=== PATIENT | male | born 1995 | race Caucasian/White ===

== ENCOUNTER 2017-10-15 21:06 | Emergency (ER) | payer BC, SELFPAY ==
[2017-10-15 21:07] VITALS: BP 109/57; PULSE 86; RESP 16; TEMP 36; O2SAT 97; BMI 24.4
[2017-10-15 22:11] VITALS: BP 107/59; PULSE 82; RESP 16; O2SAT 97
[2017-10-15] MEDS: Diphth,Pertuss(Acell),Tet Vac 0.5 ML Vial IM (22:25)
[2017-10-15 22:26] VITALS: BP 103/50; BP 104/41; BP 106/56; PULSE 66; PULSE 73; PULSE 74
[2017-10-15 23:50] LABS: Absolute Lymphocyte Count 1.28 X10^3/ul (0.83-4.51); Basophil# 0.02 X10^3/uL; Basophil% 0.2 % (0-1); Eosinophil# 0.15 X10^3/uL; Eosinophils% 1.9 % (0-5); Hematocrit 40.5 % (40-54); Hemoglobin 14.3 g/dl (13.0-16.5); Lymphocyte # 1.28 X10^3/ul (4.0); Lymphocyte % 15.9 % (19-41); Mean Corp Hgb Conc 35.3 g/gl (32-36); Mean Corpuscular Hgb 31.4 pg (27.0-32.0); Mean Platelet Vol. 10.1 fl (6.2-12.0); Monocyte# 0.59 X10^3/uL; Monocyte% 7.3 % (0-10); Neutrophil # 5.99 X10^3/uL (2.7-7.7); Neutrophil % 74.6 % (47-70); Platelet Count 192 K/mm3 (150-450); RBC Distribution Width CV 12.1 % (11.6-14.6); RBC Distribution Width SD 39.2 fl (35.1-43.9); Red Blood Count 4.55 M/mm3 (4.6-6.2)
[2017-10-15 23:51] LABS: POSITIVE COUNT NO; POSITIVE DIFFERENTIAL NO; POSITIVE MORPHOLOGY NO
--- NOTE | 2017-10-15 23:57 | ED.DCSUM_ITS ---
- ER Visit Summary Date of Service: 10/15/17 Chief Complaint: syncope History of Present Illness: The patient is a 22 M who presents with a syncopal episode that occurred tonight. Patient states he was walking in the kitchen when he felt lightheaded and passed out. Patient fell forward and hit his forehead on the kitchen counter. Patient states he was only unconscious for approximately 30 seconds. Patient states he has a history of prior syncopal episodes as a child. Patient denies any palpitations. Patient denies any chest pain or shortness of breath. Patient denies any nausea or vomiting. Patient states he did feel somewhat lightheaded prior to passing out. Patient denies any symptoms currently. Patient is unsure of his last tetanus shot. Physical Examination: Vital signs are stable. Patient is afebrile. Patient is in no acute distress. Pupils are equal, round, and reactive to light bilateral. Extraocular muscles are intact. Conjunctiva is clear. Neck is supple. There is full range of motion. Heart was regular rate and rhythm. Lungs are clear and equal bilaterally. Cranial nerves II through XII are intact. There are no focal motor or sensory deficits noted. Skin is warm and dry. There is a 2 cm full-thickness linear laceration over the right eyebrow area. There is moderate gapping of the wound margins. There is no foreign bodies noted. There is no bony crepitance or step-off. The remaining physical exam is within normal limits. Test Results: CBC and basic metabolic profile were obtained. Emergency Department Course and Treatment: Orthostatic vital signs were obtained were within normal limits. The right eyebrow laceration was cleaned and irrigated with copious amounts of normal saline. The wound was anesthetized 1% plain lidocaine locally. The wound was closed with 5 simple interrupted #5-0 nylon sutures under sterile technique. Patient tolerated procedure well. Patient was instructed to keep the wound clean and dry. Patient was instructed to follow-up with his primary care physician in 5-7 days. Patient understood and was agreeable with the plan. All questions were answered. Disposition: Discharged home Impression: Syncope, right eyebrow laceration This note was generated with [employer] dictation software. It may contain incorrect words, spelling, and punctuation that were not noted in review of the chart prior to signing ED Disposition - Plan for ED Patient: Disposition: Home or Assisted Living Chief Complaint: Head Injury Diagnosis: Syncope, Laceration of right eyebrow without complication Instructions: ED Fainting Unkn Cause, ED Laceration Facial Sutr Tape Referrals: NOT,DEFINED [Primary Care Provider] -
[2017-10-16 00:08] LABS: Anion Gap 5 (5-15); BUN 22 mg/dL (7-18); Calcium,Total 8.9 mg/dL (8.5-10.1); Chloride 104 mmol/L (98-107); Creatinine, Serum 0.81 mg/dL (0.70-1.30); EST Glomerular Filtration Rate 127 mL/min (>60); Est Glom Filt Rate - Afr Amer 154 mL/min (>60); Glucose 104 mg/dL (74-106); Potassium 3.6 mmol/L (3.5-5.1); Sodium Level 138 mmol/L (136-145)
[2017-10-16 00:10] VITALS: PULSE 68; RESP 18; O2SAT 98
== END 2017-10-16 00:37 | disposition home or self-care (01) ==
PROVIDERS: Emergency Provider Emergency Medicine
DX: R55 Syncope and collapse (principal); S01.111A Laceration without foreign body of right eyelid and periocular area, initial encounter; W18.39XA Other fall on same level, initial encounter; Y93.01 Activity, walking, marching and hiking; Y92.000 Kitchen of unspecified non-institutional (private) residence as the place of occurrence of the external cause
CPT/HCPCS: 12011; 80048; 85025; 90471; 90715; 99284; A4216